=== PATIENT | male | born 1965 | race Two or more races ===

== ENCOUNTER 2023-09-14 21:47 | Emergency (ER) | payer SELFPAY ==
[~2023-09-14] VITALS: Ht 170.2 cm; Wt 86.2 kg
[2023-09-14 22:10] VITALS: BP 162/81; TEMP 97.9; O2SAT 99
[2023-09-14] MEDS ORDERED: ACETAMINOPHEN ES 500 MG TABLET PO ONE (22:30)
== END 2023-09-15 01:29 | disposition left against medical advice (07) ==
LOC: ER 22:01
DX: M25.512 Pain in left shoulder (principal); Y08.89XA Assault by other specified means, initial encounter; Y93.89 Activity, other specified; Y92.89 Other specified places as the place of occurrence of the external cause; Y99.8 Other external cause status
CPT/HCPCS: 73000-TC; 73030-TC

== ENCOUNTER → 2023-09-16 | Emergency (ER) | payer SELFPAY ==
[~2023-09-16] VITALS: Ht 172.7 cm; Wt 87.1 kg
[2023-09-16 11:10] VITALS: BP 153/84; TEMP 98.3
[2023-09-16 11:27] VITALS: O2SAT 99
== END | disposition home or self-care (01) ==
LOC: ER 12:03
DX: M25.511 Pain in right shoulder (principal); I10 Essential (primary) hypertension; Y08.89XA Assault by other specified means, initial encounter; Y93.89 Activity, other specified; Y92.89 Other specified places as the place of occurrence of the external cause; Y99.8 Other external cause status